=== PATIENT | female | born 1995 | race Caucasian/White ===

== ENCOUNTER 2018-04-23 07:38 | Inpatient (IN) | payer MEDICAID, OTHER ==
[2018-04-23 10:15] LABS: Basophils % (Auto) 0.1 % (0.0-1.8); Eosinophils # (Auto) 0.1 K/mm3 (0.0-0.4); Eosinophils % (Auto) 0.4 % (0.0-4.3); Hematocrit 30.3 % (30.3-42.9); Hemoglobin 9.6 gm/dl (10.1-14.3); Lymphocytes # (Auto) 1.9 K/mm3 (1.2-5.4); Lymphocytes % (Auto) 14.6 % (13.4-35.0); Mean Corpuscular HGB Conc 32 % (30-34); Mean Corpuscular Volume 74 fl (79-97); Monocytes # (Auto) 0.8 K/mm3 (0.0-0.8); Monocytes % (Auto) 6.5 % (0.0-7.3); Platelet Count 337 K/mm3 (140-440); Red Blood Count 4.07 M/mm3 (3.65-5.03); Red Cell Distribution Width 17.6 % (13.2-15.2)
[2018-04-23] MEDS ORDERED: XYLOCAINE 2% INFILTRATI ONE (11:38)
[2018-04-23] MEDS ORDERED: NARCAN 0.4 MG/1 ML IV PRN (11:38)
[2018-04-23] MEDS ORDERED: ZOFRAN IV PRN (11:38)
[2018-04-23] MEDS ORDERED: BRETHINE SUB-Q PRN (11:38)
[2018-04-23] MEDS ORDERED: SUBLIMAZE IV PRN (11:38)
[2018-04-23] MEDS: LACTATED RINGERS 1,000 ML IV SCH ×3 (11:38→22:25)
[2018-04-23] MEDS ORDERED: BRETHINE IVP PRN (11:38)
--- NOTE | 2018-04-23 11:48 | History and Physical Report ---
History of Present Illness Date of examination: 04/23/18 Date of admission: 04/23/18 10:04 Chief complaint: Intense labor pains History of present illness: 22 yo Fe , LMP 07/17/2017, LIDA 04/23/2018 (LMP), 40 weeks 0 days, presents in spontaneous labor. Pt initiated late care with [facility] at 15+ weeks gestation. records available and reviewed. Supplemented with FeS04 for anemia. 1 hr GTT 142, 3hr GTT wnl. B positive, Rubella Immune, VDRL Negative,HBsAg Negative, HIV Negative, CH/GC/Trich Negative, QUAD screen Nega tive, GBS Negative. 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 denies: smoking, alcohol abuse, prescription drug abuse, IV drug use - Obstetrical History Expected Date of Delivery: 04/23/18 Actual Gestation: 40 Week(s) 0 Day(s) : 1 Para: 0 Hx # Term Pregnancies: 0 Number of Pregnancies: 0 Spontaneous Abortions: 0 Induced : 0 Number of Living Children: 0 Medications and Allergies Allergies Allergy/AdvReac Type Severity Reaction Status Date / Time No Known Allergies Allergy Verified 04/23/18 10:42 Active Meds: Active Medications Fentanyl (Sublimaze) 100 mcg IV ONCE ONE Stop: 04/23/18 12:01 Last Admin: 04/23/18 11:36 Dose: 100 mcg Documented by: Lactated Ringer's (Lactated Ringers) 1,000 mls @ 125 mls/hr IV DIRECT REECE Last Admin: 04/23/18 11:38 Dose: 125 mls/hr Documented by: Review of Systems Cardiovascular: no chest pain, no shortness of breath Respiratory: no shortness of breath Breasts: normal Gastrointestinal: no nausea, no vomiting, no diarrhea, no constipation Genitourinary: normal appearance, contractions, no leakage of fluid, no genital sores Integumentary: no rash, no sores, no lesions - Vital Signs Vital signs: Vital Signs Pulse Pulse Ox 83 99 04/23/18 08:05 04/23/18 08:05 Temp Pulse Resp BP Pulse Ox 98.6 F 85 18 127/67 99 04/23/18 08:39 04/23/18 11:27 04/23/18 08:39 04/23/18 11:27 04/23/18 08:05 - Physical Exam Breasts: Positive: normal Cardiovascular: Regular rate, Normal S1, Normal S2, No murmurs Lungs: Positive: Clear to auscultation, Normal air movement Abdomen: Positive: normal appearance, soft, normal bowel sounds. Negative: distention Genitourinary (Female): Positive: normal external genitalia, normal perenium Vulva: both: normal Vagina: Positive: normal moisture Uterus: Positive: enlarged (Gravid) Anus/Rectum: Positive: normal perianal skin Extremities: Positive: normal Deep Tendon Reflex Grade: Normal +2 - Obstetrical FHR: category 1 Uterine Contraction Monitor Mode: External Cervical Dilatation: 5 (Per labor nurse (Christiane)) Uterine Contraction Pattern: Regular Uterine Tone Measurement Phase: Resting Uterine Contraction Intensity: Moderate Results Result Diagrams: 04/23/18 09:45 Abnormal lab results 04/23/18 Range/Units 09:45 WBC 12.9 H (4.5-11.0) K/mm3 Hgb 9.6 L (10.1-14.3) gm/dl MCV 74 L (79-97) fl MCH 24 L (28-32) pg RDW 17.6 H (13.2-15.2) % Seg Neutrophils % 78.4 H (40.0-70.0) % Seg Neutrophils # 10.1 H (1.8-7.7) K/mm3 All other labs normal. Assessment and Plan A: Term IUP at 40w0d Active labor Category 1 tracing GBS Negative Asymptomatic Anemia P: Admit to L&D; Routine labor orders IV pain med/epidural PRN Anticipate
[2018-04-23] MEDS ORDERED: SUBLIMAZE IV ONE (12:00)
[2018-04-23] MEDS ORDERED: PITOCin/NS 20 UNIT/1000ML DRIP 20 UNITS/1,000 ML BAG IV SCH (12:00)
--- NOTE | 2018-04-23 15:08 | Progress Note ---
Assessment and Plan A: Term IUP at 40w0d Active labor Category 1 tracing GBS Negative AROM 04/23/18@15:03, small, clear Irregular contractions P: Continue routine labor orders IV pain med/epidural PRN Pitocin Augmentation Anticipate Subjective - Subjective Date of service: 04/23/18 (15:03) Principal diagnosis: Active labor at term Interval history: 22 yo Fe , LMP 07/17/2017, LIDA 04/23/2018 (LMP), 40 weeks 0 days, presents in spontaneous labor. Pt initiated late care with [facility] at 15+ weeks gestation. records available and reviewed. Supplemented with FeS04 for anemia. 1 hr GTT 142, 3hr GTT wnl. B positive, Rubella Immune, VDRL Negative,HBsAg Negative, HIV Negative, CH/GC/Trich Negative, QUAD screen Negative, GBS Negative. Patient reports: movement normal, contractions, no vaginal bleeding Objective - Vital Signs Vital Signs: Vital Signs - 12hr 04/23/18 04/23/18 04/23/18 08:05 08:39 10:25 Temperature 98.6 F Pulse Rate 83 82 Respiratory 18 Rate Blood Pressure 115/65 O2 Sat by Pulse 99 Oximetry 04/23/18 04/23/18 04/23/18 10:57 11:27 11:56 Temperature Pulse Rate 88 85 95 H Respiratory Rate Blood Pressure 125/79 127/67 120/73 O2 Sat by Pulse Oximetry 04/23/18 04/23/18 04/23/18 12:27 12:55 13:26 Temperature Pulse Rate 103 H 90 80 Respiratory Rate Blood Pressure 117/58 122/72 110/63 O2 Sat by Pulse Oximetry 04/23/18 04/23/18 04/23/18 13:55 14:21 14:26 Temperature 97.4 F L Pulse Rate 84 93 H Respiratory 20 Rate Blood Pressure 108/62 123/66 O2 Sat by Pulse Oximetry - Exam Cardiovascular: Regular rate, Normal S1, Normal S2, No murmurs Lungs: Clear to auscultation, Normal air movement Abdomen: Present: normal appearance, soft, normal bowel sounds. Absent: distention Vulva: both: normal Uterus: Present: other (gravid) FHR: category 1 Uterine Contraction Monitor Mode: External Cervical Dilatation: 7 (AROM 04/23/18@15:03, small, clear) Cervical Effacement Percentage: 80 station: -1 Uterine Contraction Pattern: Regular (not tracing well with [place]) Uterine Tone Measurement Phase: Resting Uterine Contraction Intensity: Moderate Extremities: normal Deep Tendon Reflex Grade: Normal +2 - Labs Labs: Abnormal Labs 04/23/18 09:45 WBC 12.9 H Hgb 9.6 L MCV 74 L MCH 24 L RDW 17.6 H Seg Neutrophils % 78.4 H Seg Neutrophils # 10.1 H Laboratory Results - last 24 hr 04/23/18 04/23/18 09:45 09:45 WBC 12.9 H RBC 4.07 Hgb 9.6 L Hct 30.3 MCV 74 L MCH 24 L MCHC 32 RDW 17.6 H Plt Count 337 Lymph % (Auto) 14.6 [place] % (Auto) 6.5 Eos % (Auto) 0.4 Baso % (Auto) 0.1 Lymph # 1.9 [place] # 0.8 Eos # 0.1 Baso # 0.0 Seg Neutrophils % 78.4 H Seg Neutrophils # 10.1 H Blood Type B POSITIVE Antibody Screen Negative
[2018-04-23] MEDS ORDERED: PITOCin/NS 30 UNIT/500ML 30,000 MILLIUNITS/500 ML BAG IV ONE (15:12)
[2018-04-23] MEDS ORDERED: NARCAN 2 MG/2 ML IV PRN (15:43)
[2018-04-23] MEDS ORDERED: PITOCin/NS 30 UNIT/500ML 30 UNITS/500 ML BAG IV SCH (16:00)
[2018-04-23] MEDS ORDERED: fentaNYL-BUPIV 2 MCG/ML-0.125% 200 MCG/100 ML BAG EPIDURAL SCH (16:00)
[2018-04-23] MEDS ORDERED: SENSORCAINE/DEXTR 0.75-8.25% INFILTRATI ONE (16:12)
[2018-04-23] MEDS ORDERED: XYLOCAINE MPF 2% ONE (17:55)
--- NOTE | 2018-04-23 18:24 | Event Note ---
Date: 04/23/18 O; VE rim/90/-1, Pit at 10 mu, contractions every 3 min, CAT I tracing. A: Active labor @ 40 weeks P: Expect
[2018-04-23] MEDS ORDERED: METHERGINE IM ONE ×2 (21:41→21:51)
[2018-04-23] MEDS ORDERED: LANSINOH TP PRN (21:53)
[2018-04-23] MEDS ORDERED: TYLENOL PO PRN (21:53)
[2018-04-23] MEDS ORDERED: NORCO 5/325 PO PRN (21:53)
[2018-04-23] MEDS ORDERED: DULCOLAX PR PRN (21:53)
[2018-04-23] MEDS ORDERED: TUCKS PAD TP PRN (21:53)
[2018-04-23] MEDS ORDERED: PHENERGAN PO PRN (21:53)
[2018-04-23] MEDS ORDERED: BENADRYL PO PRN (21:53)
[2018-04-23] MEDS ORDERED: SODIUM CHLORIDE FLUSH SYRINGE 10 ML IV NR (22:00)
--- NOTE | 2018-04-23 22:04 | Procedure Note ---
OB Delivery Note - Delivery Date of Delivery: 04/23/18 Surgeon: HOANG MAYA Estimated blood loss: other (350cc) - Vaginal Delivery presentation: vertex Delivery position: OA Delivery augmentation: rupture of membranes, pitocin Delivery monitor: external FHT, external uterine, internal FHT Route of delivery: Delivery placenta: spontaneous Delivery cord: other (cord wrapped around the left arm) Episiotomy: none Delivery laceration: other (1st degree vaginal floor laceration) Delivery repair: vicryl Anesthesia: epidural Delivery comments: of a viable male 7# 4oz at 2131 on 04/23/18 over intact perineum. Cord wrapped around the left arm. Terminal meconium noted at delivery. Cord clamped and cut and baby to mom's abdomen. Placenta delivered S3VCI. Moderate amount of lochia, methergine 0.2mg IM in left thigh. 1st degree vaginal floor laceration repaired with 2-0 vicryl. FF@U-2. EBL 350cc. Mother and baby doing well. - Infant A at 1 minute: 8 at 5 minutes: 9 Gender: Male (7# 4 oz)
[2018-04-24] MEDS: IBUPROFEN PO SCH ×4 (06:28→23:12)
[2018-04-24 10:42] LABS: Hematocrit 25.5 % (30.3-42.9); Hemoglobin 8.2 gm/dl (10.1-14.3)
--- NOTE | 2018-04-24 15:17 | Progress Note ---
Assessment and Plan A: PPD #1 - stable Anemia P: Iron BID F/U in 6 weeks at [facility] Subjective - Subjective Date of service: 04/24/18 Principal diagnosis: Active labor at term Patient reports: appetite normal : doing well Objective - Vital Signs Latest vital signs: Vital Signs Temp Pulse Resp BP BP Pulse Ox 04/24/18 11:25 99.9 F H 18 116/67 04/24/18 07:35 99.2 F 18 97/48 04/24/18 05:50 98.6 F 105 H 18 112/54 04/23/18 23:30 99.4 F 104 H 18 123/72 123/72 97 04/23/18 23:01 104 H 146/88 98 04/23/18 22:56 106 H 97 04/23/18 22:51 114 H 98 04/23/18 22:46 101 H 133/87 96 04/23/18 22:41 93 H 96 04/23/18 22:36 100 H 96 04/23/18 22:31 94 H 134/76 96 04/23/18 22:26 99 H 97 04/23/18 22:21 102 H 97 04/23/18 22:17 106 H 130/69 04/23/18 22:16 105 H 98 04/23/18 22:11 106 H 98 04/23/18 22:06 111 H 98 04/23/18 22:01 113 H 98 04/23/18 22:00 99.0 F 110 H 18 135/69 99 04/23/18 21:58 57 L 88 04/23/18 21:56 115 H 99 04/23/18 21:51 113 H 99 04/23/18 21:49 112 H 135/69 04/23/18 21:46 107 H 98 04/23/18 21:44 117 H 160/74 04/23/18 21:19 71 93 04/23/18 21:16 117 H 112/73 04/23/18 21:15 122 H 96 04/23/18 21:10 118 H 97 04/23/18 21:05 117 H 98 04/23/18 21:00 127 H 97 04/23/18 20:55 120 H 97 04/23/18 20:50 114 H 98 04/23/18 20:45 117 H 97 04/23/18 20:44 129 H 125/68 02/07/19 20:40 112 H 100 04/23/18 20:35 110 H 99 04/23/18 20:30 94 H 98 04/23/18 20:25 98 H 99 04/23/18 20:20 101 H 98 04/23/18 20:18 115 H 91 04/23/18 20:15 103 H 135/89 96 04/23/18 20:10 97 H 100 04/23/18 20:05 103 H 100 04/23/18 20:00 106 H 99 04/23/18 19:55 106 H 100 04/23/18 19:50 104 H 100 04/23/18 19:45 95 H 100 04/23/18 19:44 98 H 122/79 04/23/18 19:40 105 H 100 04/23/18 19:35 100 H 100 04/23/18 19:30 118 H 100 04/23/18 19:25 112 H 100 04/23/18 19:20 103 H 100 04/23/18 19:13 97.9 F 103 H 18 131/82 04/23/18 19:05 103 H 131/82 04/23/18 18:50 109 H 117/79 04/23/18 18:35 105 H 116/75 04/23/18 18:19 90 117/68 04/23/18 18:05 80 116/66 04/23/18 17:50 94 H 122/77 04/23/18 17:34 90 125/75 04/23/18 17:19 99 H 128/72 04/23/18 17:17 127/76 04/23/18 17:15 88 127/72 04/23/18 17:13 101 H 121/75 04/23/18 17:11 97 H 115/73 04/23/18 17:09 104 H 125/75 04/23/18 17:07 119/71 04/23/18 17:05 86 120/61 04/23/18 17:03 100 H 128/61 04/23/18 16:59 90 130/65 04/23/18 16:57 98 H 127/60 04/23/18 16:55 96 H 130/60 04/23/18 16:53 110 H 130/62 04/23/18 16:51 96 H 123/72 04/23/18 16:49 113 H 113/67 04/23/18 16:47 89 114/54 04/23/18 16:45 96 H 133/60 04/23/18 16:41 107 H 124/59 04/23/18 16:39 90 121/66 04/23/18 16:37 109 H 120/63 04/23/18 16:35 96 H 119/61 04/23/18 16:33 99 H 108/56 04/23/18 16:31 100 H 119/65 04/23/18 16:29 128/75 04/23/18 16:26 113 H 04/23/18 16:25 113 H 125/78 04/23/18 15:56 114 H 140/94 04/23/18 15:25 100 H 139/63 Intake and Output 04/24/18 04/24/18 04/24/18 06:59 14:59 22:59 Intake Total 120 Output Total 500 500 Balance -380 -500 Intake: Intake, Free Water 120 Output: Urine 500 500 Void 500 500 Other: Total, Output Amount 500 500 # Voids Void 1 1 - Exam Breasts: Present: deferred Cardiovascular: Present: Regular rate Lungs: Present: Clear to auscultation Abdomen: Present: soft Vulva: both: normal Uterus: Present: fundal height at umbilicus Extremities: Present: normal Deep Tendon Reflex Grade: Normal +2 - Labs Labs: Abnormal lab results 04/24/18 Range/Units 10:23 Hgb 8.2 L (10.1-14.3) gm/dl Hct 25.5 L (30.3-42.9) %
--- NOTE | 2018-04-24 15:19 | Discharge Summary ---
<RANDIVERNONHOANG - Last Filed: 04/24/18 15:17> Providers - Providers Date of Admission: 04/23/18 10:04 Date of discharge: 04/25/18 Attending physician: ALMITA LANE MD Primary care physician: ALMITA LANE MD Hospitalization Reason for admission: active labor Delivery: Episiotomy: none Laceration: 1st degree Other procedures: none complications: none Discharge diagnosis: IUP at term delivered [place] baby: male Condition at discharge: Good Disposition: DC-01 TO HOME OR SELFCARE Plan - Provider Discharge Summary Activity: routine, no sex for 6 weeks, no strenuous exercise Diet: routine Instructions: routine Additional instructions: [] Smoking cessation referral if applicable(refer to patient education folder for contact #) [] Refer to [facility] Booklet Call your doctor immediately for: * Fever > 100.5 * Heavy vaginal bleeding ( >1 pad per hour) * Severe persistent headache * Shortness of breath * Reddened, hot, painful area to leg or breast * Drainage or odor from incision. * Keep incision clean and dry at all times and follow doctor's instructions regarding bathing/showering - Follow up plan Follow up: ALMITA LANE MD [Primary Care Provider] - 6 Weeks <LEIGH ANN CENTENO - Last Filed: 04/24/18 19:55> Providers - Providers Date of Admission: 04/23/18 10:04 Attending physician: ALMITA LANE MD Primary care physician: ALMITA LANE MD Hospitalization - Discharge Diagnoses (1) Anemia due to acute blood loss Status: Acute Comment: Discharged home on ferrous sulfate. (2) Anemia complicating Status: Acute Plan - Provider Discharge Summary Additional instructions: [] Smoking cessation referral if applicable(refer to patient education folder for contact #) [] Refer to [facility] Booklet Call your doctor immediately for: * Fever > 100.5 * Heavy vaginal bleeding ( >1 pad per hour) * Severe persistent headache * Shortness of breath * Reddened, hot, painful area to leg or breast * Drainage or odor from incision. * Keep incision clean and dry at all times and follow doctor's instructions regarding bathing/showering
[2018-04-24] MEDS: FEOSOL PO SCH (23:11)
[2018-04-25] MEDS: IBUPROFEN PO SCH ×3 (06:36→21:09)
[2018-04-25 09:45] LABS: Alanine Aminotransferase 18 units/L (7-56); Albumin 2.8 g/dL (3.9-5); BUN/Creatinine Ratio 18; Blood Urea Nitrogen 11 mg/dL (7-17); Calcium 8.5 mg/dL (8.4-10.2); Hemolysis Index 55
[2018-04-25] MEDS: FEOSOL PO SCH ×2 (10:19→21:09)
--- NOTE | 2018-04-25 10:56 | Progress Note ---
Assessment and Plan A: day 2 S/P spontaneous vaginal delivery. Anemia related to and acute blood loss. Edema BLE. P: Supplement with iron. PreE labs. Recheck BPs. Subjective - Subjective Date of service: 04/25/18 Principal diagnosis: day 2 S/P Interval history: day 2 S/P . Patient has had sporadically elevated blood pressures over the past few days; most BPs are normal. Patient denies headache, visual disturbance, nausea or vomiting, abdominal or epigastric pain. Patient is voiding without difficulty, passing gas, ambulating well. Patient is tolerating a regular diet. Patient reports: appetite normal, voiding normally, pain well controlled, ambulating normally, no dizzy ambulation, no flatus, no nauseated : doing well Objective - Vital Signs Latest vital signs: Vital Signs Temp Pulse Resp BP Pulse Ox 04/25/18 08:07 98.1 F 84 20 105/54 99 04/25/18 01:03 98.7 F 18 157/67 04/24/18 20:41 98.5 F 113 H 18 113/70 98 04/24/18 17:23 98.6 F 100 H 20 107/72 99 04/24/18 11:25 99.9 F H 18 116/67 Intake and Output 04/24/18 04/25/18 04/25/18 23:59 07:59 15:59 Intake Total 240 Balance 240 Intake: Intake, Free Water 240 Other: # Voids Void 1 - Exam Cardiovascular: Present: Regular rate, Normal S1, Normal S2 Lungs: Present: Clear to auscultation Abdomen: Present: normal appearance, soft, normal bowel sounds. Absent: distention, tenderness, guarding, rigidity Uterus: Present: normal, firm, fundal height below umbilicus. Absent: bogginess, tenderness Extremities: Present: normal, edema (moderate edema of ankles, feet, and hand bilaterally). Absent: tenderness - Labs Labs: Abnormal lab results 04/25/18 Range/Units 09:10 Creatinine 0.6 L (0.7-1.2) mg/dL Total Protein 5.5 L (6.3-8.2) g/dL Albumin 2.8 L (3.9-5) g/dL
[2018-04-26 01:32] LABS: Bacteria,Urine 1+ /HPF (Negative); Bilirubin,Urine NEG (Negative); Blood,Urine LG (Negative); Color,Urine Yellow (Yellow); Mucus,Urine 2+ /HPF; Urobilinogen,Urine < 2.0 mg/dL (<2.0)
[2018-04-26 01:38] LABS: RBC,Urine > 182.0 /HPF (0.0-6.0); WBC,Urine > 182.0 /HPF (0.0-6.0)
[2018-04-26] MEDS: IBUPROFEN PO SCH ×4 (03:18→18:24)
--- NOTE | 2018-04-26 16:20 | Progress Note ---
Assessment and Plan A: day 3 S/P spontaneous vaginal delivery. Anemia of and acute blood loss. UTI. P: Discharge patient home today. Advised patient to continue her vitamins and iron supplements at home. Discussed with patient discharge instructions and warning signs. Advised patient to avoid intercourse, lifting and heavy housework, driving, and tub baths (showers OK). Rx Augmentin 500 mg, #14, 1 po BID called to [facility] pharmacy on [address]. Advised patient to follow up at [facility] clinic in 1 week; pt. to call clinic tomorrow to obtain appointment. Patient voiced understanding of all instructions. Subjective - Subjective Date of service: 04/26/18 Principal diagnosis: day 3 S/P Interval history: day 3 S/P . Patient is doing well; patient desires discharge today. . Patient reports small amount of lochia. Patient is voiding without difficulty; ambulating well and tolerating a regular diet. Passing gas. Patient denies headache, chest pain, cough, shortness of breath, dizziness, abdominal pain, leg pain, heavy vaginal bleeding, or any other symptoms. Patient reports: appetite normal, voiding normally, pain well controlled, flatus, ambulating normally, no dizzy ambulation, no nauseated [place]: doing well Objective - Vital Signs Latest vital signs: Vital Signs Temp Pulse Resp BP Pulse Ox 04/26/18 08:11 98.2 F 81 16 109/77 99 04/26/18 00:52 98.3 F 89 18 120/80 98 04/25/18 17:18 97.9 F 103 H 18 115/73 97 Intake and Output 04/26/18 04/26/18 04/26/18 07:59 15:59 23:59 Intake Total 240 Balance 240 Intake: Intake, Free Water 240 Other: # Voids Void 1 - Exam Cardiovascular: Present: Regular rate, Normal S1, Normal S2 Lungs: Present: Clear to auscultation Abdomen: Present: normal appearance, soft, normal bowel sounds. Absent: distention, tenderness, guarding, rigidity Uterus: Present: normal, firm, fundal height below umbilicus. Absent: bogginess, tenderness Extremities: Present: normal, edema (mild pedal edema bilaterally). Absent: tenderness - Labs Labs: Abnormal lab results 04/25/18 Range/Units 01:09 Urine WBC (Auto) > 182.0 H (0.0-6.0) /HPF U Epithel Cells (Auto) 22.0 H (0-13.0) /HPF
--- NOTE | 2018-04-26 16:27 | Discharge Summary ---
Providers - Providers Date of Admission: 04/23/18 10:04 Date of discharge: 04/19/18 Attending physician: ALMITA LANE MD None Primary care physician: ALMITA LANE MD Hospitalization Reason for admission: active labor Delivery: Episiotomy: none Laceration: none Other procedures: none complications: none Discharge diagnosis: IUP at term delivered baby: male Pertinent studies: Labs Hospital course: Normal hospital course. Condition at discharge: Good Disposition: DC-01 TO HOME OR SELFCARE - Discharge Diagnoses (1) Term delivered Status: Acute (2) Anemia due to acute blood loss Status: Acute Comment: Discharged home on ferrous sulfate. Plan - Provider Discharge Summary Activity: routine, no sex for 6 weeks, no heavy lifting 4 weeks, no strenuous exercise Diet: routine Instructions: routine Additional instructions: Call your doctor immediately for: * Fever > 100.5 * Heavy vaginal bleeding ( >1 pad per hour) * Severe persistent headache * Shortness of breath * Reddened, hot, painful area to leg or breast * Drainage or odor from incision. * Keep incision clean and dry at all times and follow doctor's instructions regarding bathing/showering - Follow up plan Follow up: ALMITA LANE MD [Primary Care Provider] - 7 Days Forms: [facility] Discharge Summary, Discharge Signature Page
[2018-04-26 16:58] VITALS: BP 111/62
== END 2018-04-26 18:40 | disposition home or self-care (01) | DRG 806 ==
LOC: TRG 07:38 → LD 10:04 → OB 23:53
PROVIDERS: ADMIT Obstetrics & Gynecology; ATTEND Obstetrics & Gynecology
PROC: 10E0XZZ Delivery of Products of Conception, External Approach (ICD-10-PCS; principal; 2018-04-23)
PROC: 10907ZC Drainage of Amniotic Fluid, Therapeutic from Products of Conception, Via Natural or Artificial Opening (ICD-10-PCS; 2018-04-23)
PROC: 0HQ9XZZ Repair Perineum Skin, External Approach (ICD-10-PCS; 2018-04-23)
PROC: 3E0R3BZ Introduction of Anesthetic Agent into Spinal Canal, Percutaneous Approach (ICD-10-PCS; 2018-04-23)
PROC: 00HU33Z Insertion of Infusion Device into Spinal Canal, Percutaneous Approach (ICD-10-PCS; 2018-04-23)
DX: O99.02 Anemia complicating childbirth (principal); O23.43 Unspecified infection of urinary tract in pregnancy, third trimester; Z37.0 Single live birth; D62 Acute posthemorrhagic anemia; O77.0 Labor and delivery complicated by meconium in amniotic fluid; O70.0 First degree perineal laceration during delivery; Z3A.40 40 weeks gestation of pregnancy
CPT/HCPCS: 36415; 59200; 80053; 81001; 85014; 85018; 85025; 85049; 86850; 86900; 86901; G0378; J2210; J2590; J3010; J7120